=== PATIENT | female | born 1990 | race Caucasian/White ===

== ENCOUNTER 2020-10-08 09:26 | Emergency (ER) | payer OTHER ==
[~2020-10-08] VITALS: Ht 162.6 cm; Wt 81.7 kg
[~2020-10-08 09:26] MED LIST: AMOXIL 875 MG875 M2 PO; AUGMENTIN 875875 MG PO; AURALGAN OTIC S14 ML OT; CORTISPORIN OTI10 ML OTIC; FLEXERIL PO; HYDROCODON-ACE1 EA11 PO; IBUPROFEN 800800 MG PO; KEFLEX500 M1 PO; KEFLEX500 MG PO; LIDODERM 5%1 PATC1 TRANSDERM; MACROBID 100 M100 M1 PO; NAPROSYN500 MG PO; NOHOMEMEDICATIONS; NORCO 5-325 TA1 EACH PO; PHENERGAN 25 MG25 MG PO; PREDNISONE50 MG PO; PROMETHAZINE D480 ML PO; ROCEPHIN 11 GM/1001; TRAMADOL 50 MG50 MG PO; ULTRAM 50MG TAB50 MG PO; VICODIN 5-3001 EACH PO; VICODIN 5-5001 EACH PO; ZPAK PO
[2020-10-08 10:15] LABS: ABSOLUTE BASOPHILS 0.1 thou/uL (0.0-0.2); ABSOLUTE EOSINOPHILS 0.4 thou/uL (0.0-0.7); ABSOLUTE LYMPHOCYTES 2.1 thou/uL (0.8-5.3); ABSOLUTE MONOCYTES 0.8 thou/uL (0.0-1.2); ABSOLUTE NEUTROPHILS 5.5 thou/uL (1.6-8.1); BASOPHILS 0.7 %; EOSINOPHILS 4.1 %; HEMATOCRIT 47.2 % (37.0-47.0); HEMOGLOBIN 15.6 gm/dL (12.0-15.0); LYMPHOCYTES 23.5 %; MCH 30.5 pg (26.0-34.0); MCV 92.3 fL (80.0-100.0); MONOCYTES 8.8 %; MPV 9.8 fl. (7.2-11.1); NUCLEATED RBCS 0 /100WBC; PLATELET COUNT* 242 thou/uL (150-400); POLYS 62.9 %; RBC 5.11 mil/uL (4.20-5.00); RDW-CV 12.8 % (10.5-14.5); WBC 8.7 thou/uL (4.0-11.0)
[2020-10-08 10:19] LABS: CREATININE 0.9 mg/dL (0.6-1.3); POTASSIUM 3.1 mmol/L (3.5-5.1)
[2020-10-08 11:30] VITALS: BP 120/85
--- NOTE | 2020-10-08 15:19 | EKG ---
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
== END 2020-10-08 11:30 | disposition home or self-care (01) ==
LOC: M.ERS 09:26
PROVIDERS: Emergency Medicine
DX: R07.89 Other chest pain (principal); R00.2 Palpitations; Z90.89 Acquired absence of other organs; Z86.14 Personal history of Methicillin resistant Staphylococcus aureus infection; Z88.1 Allergy status to other antibiotic agents; Z88.0 Allergy status to penicillin

== ENCOUNTER 2020-10-15 19:00 | Emergency (ER) | payer OTHER ==
[~2020-10-15] VITALS: Ht 162.6 cm; Wt 81.7 kg
[2020-10-15] MEDS ORDERED: ZOLOFT100 MG PO (19:09)
[2020-10-15] MEDS ORDERED: DIFLUCAN150 MG PO ×2 (19:34→19:35)
[2020-10-15] MEDS ORDERED: VIBRAMYCIN 100100 M2 PO ×2 (19:34→19:35)
[2020-10-15] MEDS ORDERED: FLAGYL500 M1 PO ×2 (19:34→19:35)
[2020-10-15 19:56] VITALS: BP 128/69
== END 2020-10-15 19:56 | disposition home or self-care (01) ==
LOC: M.ERS 19:00
DX: S61.210A Laceration without foreign body of right index finger without damage to nail, initial encounter (principal); Z88.0 Allergy status to penicillin; Z88.1 Allergy status to other antibiotic agents; Z90.89 Acquired absence of other organs; Z86.14 Personal history of Methicillin resistant Staphylococcus aureus infection; W54.0XXA Bitten by dog, initial encounter; Y93.89 Activity, other specified; Y92.89 Other specified places as the place of occurrence of the external cause; Y99.8 Other external cause status